=== PATIENT | male | born 1975 | race Caucasian/White ===

== ENCOUNTER → 2019-03-30 14:44 | Outpatient (BNVA) | payer MEDICAID, SELFPAY | PROVIDERS: Family Provider Nurse Practitioner; PCP Nurse Practitioner; Visit Provider Nurse Practitioner | DX: E03.8 Other specified hypothyroidism (principal); R79.89 Other specified abnormal findings of blood chemistry; E55.9 Vitamin D deficiency, unspecified; K12.2 Cellulitis and abscess of mouth; F98.8 Other specified behavioral and emotional disorders with onset usually occurring in childhood and adolescence; M79.7 Fibromyalgia | CPT/HCPCS: 80053; 84403; 84443 ==

== ENCOUNTER → 2019-04-01 14:08 | Outpatient (BNVA) | payer MEDICAID, SELFPAY | PROVIDERS: Family Provider Nurse Practitioner; PCP Nurse Practitioner; Visit Provider Urology | DX: R79.89 Other specified abnormal findings of blood chemistry (principal) | CPT/HCPCS: 81001 ==

== ENCOUNTER → 2019-06-22 09:53 | Outpatient (BNVA) | payer MEDICAID, SELFPAY | PROVIDERS: Family Provider Nurse Practitioner; PCP Nurse Practitioner; Visit Provider Urology | DX: R79.89 Other specified abnormal findings of blood chemistry (principal); E03.8 Other specified hypothyroidism; Z11.59 Encounter for screening for other viral diseases; R74.8 Abnormal levels of other serum enzymes | CPT/HCPCS: 84403; 84443; 86705; 86706; 86709; 86803; 87340 ==

== ENCOUNTER → 2019-10-15 14:00 | Outpatient (BNVA) | payer MEDICAID, SELFPAY | PROVIDERS: Family Provider Nurse Practitioner; PCP Nurse Practitioner; Visit Provider Nurse Practitioner | DX: E03.8 Other specified hypothyroidism (principal); E55.9 Vitamin D deficiency, unspecified; R74.8 Abnormal levels of other serum enzymes; K57.30 Diverticulosis of large intestine without perforation or abscess without bleeding | CPT/HCPCS: 80053; 82306; 84439; 84443; 84481 ==

== ENCOUNTER 2019-10-23 09:57 | Outpatient (CLI) | payer MEDICAID, SELFPAY ==
[2019-10-23] MEDS: iohexol 300 mg/mL 50 mL Btl IV (10:16)
[2019-10-23] MEDS: iohexol 300 mg/mL 100 mL Btl IV (11:24)
--- NOTE | 2019-10-23 11:30 | CT_ITS ---
WS: [id number] CT ABDOMEN AND PELVIS WITH CONTRAST HISTORY: frequent stooling TECHNIQUE: Imaging performed of the abdomen and pelvis with IV contrast. Single phase imaging of the abdomen. Coronal and sagittal reformats are submitted. All CT scans at [facility] use at least one of these dose optimization techniques: automated exposure control; mA and/or kV adjustment per patient size (includes targeted exams where dose is matched to clinical indication); or iterativ e reconstruction. IV CONTRAST: Omnipaque 300; 95 mL IV. Oral contrast: Yes. DLP: 1089.62 mGycm COMPARISON: 01/29/2017 Lower thorax: Lung bases are clear. Heart is normal size. No hiatal hernia. Liver/biliary system: Mild hepatic steatosis. Normal size. Gallbladder: Normal. No gallstones or wall thickening. No pericholecystic fluid. Pancreas: Normal. Spleen: Normal. Adrenal glands: Normal. Right kidney: Normal. Left kidney: Normal. Aorta: Minimal atherosclerosis. Lymphadenopathy: None. Free fluid: None. GI tract: The appendix is not definitely identified. No obstruction or mucosal thickening. No strictu res are identified. No pericolonic inflammation. Abdominal wall: Small fat-containing umbilical hernia. Pelvis: Urinary bladder is normally distended. No adenopathy or free fluid. Bilateral inguinal canals are patent containing fat. Bones: Unremarkable. CT/CT abdomen pelvis w con* [id number] IMPRESSION: 1. No acute abdominal or pelvic abnormalities. 2. Mild hepatic steatosis. 3. Appendix is not identified. No GI tract abnormality.
== END 2019-10-23 09:58 | disposition home or self-care (01) ==
LOC: RADWPI 10:00
PROVIDERS: Family Provider Nurse Practitioner; PCP Nurse Practitioner; Visit Provider Nurse Practitioner
DX: R19.4 Change in bowel habit (principal); K76.0 Fatty (change of) liver, not elsewhere classified
CPT/HCPCS: 74177; Q9967

== ENCOUNTER → 2020-01-13 15:17 | Outpatient (BNVA) | payer MEDICAID, SELFPAY | PROVIDERS: Family Provider Nurse Practitioner; PCP Nurse Practitioner; Visit Provider Urology | DX: R79.89 Other specified abnormal findings of blood chemistry (principal); N52.9 Male erectile dysfunction, unspecified | CPT/HCPCS: 81003; 84403 ==

== ENCOUNTER 2020-04-20 10:51 | Emergency (ER) | payer BC, MEDICAID, SELFPAY ==
[2020-04-20 10:52] VITALS: BP 112/94; PULSE 98; RESP 18; O2SAT 96; BMI 36.5
[2020-04-20 11:05] VITALS: BP 112/94; PULSE 96; RESP 17; O2SAT 96
--- NOTE | 2020-04-20 11:36 | CT_ITS ---
WS: [id number] CT LUMBAR SPINE TECHNIQUE: Noncontrast CT of the lumbar spine with coronal and sagittal reformatted images. CLINICAL INFORMATION: severe pain; cannot ambulate COMPARISON: None. DLP: 2714.[address] scans at [facility] use at least one of these dose optimization techniques: automat ed exposure control; mA and/or kV adjustment per patient size (includes targeted exams where dose is matched to clinical indication); or iterative reconstruction. FINDINGS: Normal lumbar alignment. No acute compression. No acute compression fractures. L1-L2: Central disc protrusion L1-2 with mild central canal stenosis and narrowing of the subarticula r recess. Mild facet arthropathy. Foramen are patent. L2-L3: Minimal annular bulging. Moderate facet arthropathy with ligamentum flavum hypertrophy. Imping ement left subarticular recess. Mild left foraminal narrowing. L3-L4: Minimal annular bulging. Moderate facet arthropathy. Mild left and no significant right forami nal narrowing. Spinal canal is patent. L4-L5: Shallow broad-based central disc protrusion with impingement on the traversing L5 nerve roots bilaterally. Mild central canal stenosis. Mild facet arthropathy. Foramen are patent. L5-S1: Tiny shallow central protrusion. Mild left and no significant right foraminal narrowing. Spina l canal is patent. Mild to moderate facet arthropathy. Adrenal glands are normal. A few shoddy lymph nodes in the mara hepatis. Visualized pelvic bony structures: Normal. Paravertebral soft tissues: Normal. CT/CT lumbar spine wo con* [id number] IMPRESSION: 1. Mild lumbar curve. No acute compression. No visualized fractures. 2. Central and left pericentral disc protrusion L1-2 with mild to moderate rocky tral canal stenosis and impingement traversing L2 nerve roots bilaterally. 3. Shallow central disc protrusion L4-5 with mild central canal stenosis and i mpingement traversing L5 nerve roots bilaterally. Mild right foraminal narrowin g at this level. 4. Moderate facet arthropathy L2-3 with ligamentum flavum hypertrophy. Narrowi ng of the left subarticular recess at this level. 5. Above findings can be further evaluated MRI.
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
[2020-04-20 12:21] VITALS: BP 113/91; PULSE 76; RESP 16; O2SAT 97
[2020-04-20 13:24] VITALS: RESP 18
[2020-04-20] MEDS: morphine 4 mg/mL SDV 1 mL IM (13:24)
[2020-04-20 13:27] VITALS: BP 139/79; PULSE 93; RESP 16; O2SAT 92
[2020-04-20] MEDS: ketorolac 60 mg/2 mL INJ IM (14:08)
[2020-04-20] MEDS: orphenadrine 30 mg/mL Inj 2 mL 60 MG IM (14:08)
[2020-04-20] MEDS: dexamethasone 10 mg/mL INJ IM (14:08)
[2020-04-20 14:12] VITALS: BP 136/114; PULSE 93; RESP 15; O2SAT 91
[2020-04-20] MEDS: HYDROmorphone 1 mg/mL INJ 1 mL SUBCUT (15:11)
== END 2020-04-20 16:55 | disposition home or self-care (01) ==
PROVIDERS: Emergency Provider Physician Assistant; PCP Nurse Practitioner
DX: M51.26 Other intervertebral disc displacement, lumbar region (principal); F17.210 Nicotine dependence, cigarettes, uncomplicated
CPT/HCPCS: 72131; 99283; J1100; J1170; J1885; J2270; J2360

== ENCOUNTER → 2020-05-12 15:26 | Outpatient (BNVA) | payer BC, SELFPAY | PROVIDERS: PCP Nurse Practitioner; Visit Provider Nurse Practitioner | DX: E03.8 Other specified hypothyroidism (principal); R73.9 Hyperglycemia, unspecified; Z87.891 Personal history of nicotine dependence | CPT/HCPCS: 80053; 83036; 84439; 84443; 84481 ==

== ENCOUNTER → 2020-07-07 08:48 | Outpatient (BNVA) | payer BC, SELFPAY | PROVIDERS: PCP Nurse Practitioner; Visit Provider Nurse Practitioner | DX: E03.8 Other specified hypothyroidism (principal); Z13.6 Encounter for screening for cardiovascular disorders; M79.7 Fibromyalgia; E55.9 Vitamin D deficiency, unspecified | CPT/HCPCS: 80053; 80061; 82306; 84443; 85025 ==

== ENCOUNTER → 2020-07-19 13:05 | Outpatient (BNVA) | payer BC, SELFPAY | PROVIDERS: PCP Nurse Practitioner; Visit Provider Urology | DX: N52.9 Male erectile dysfunction, unspecified (principal); R79.89 Other specified abnormal findings of blood chemistry; F17.210 Nicotine dependence, cigarettes, uncomplicated | CPT/HCPCS: 81003; 84403 ==

== ENCOUNTER → 2020-12-20 12:00 | Outpatient (BNVA) | payer BC, SELFPAY | PROVIDERS: PCP Nurse Practitioner; Visit Provider Nurse Practitioner | DX: E03.8 Other specified hypothyroidism (principal); E55.9 Vitamin D deficiency, unspecified; M79.7 Fibromyalgia | CPT/HCPCS: 80053; 82306; 84443 ==

== ENCOUNTER → 2021-02-22 14:56 | Outpatient (BNVA) | payer BC, MEDICAID, SELFPAY | PROVIDERS: PCP Nurse Practitioner; Visit Provider Urology | DX: N52.1 Erectile dysfunction due to diseases classified elsewhere (principal); R79.89 Other specified abnormal findings of blood chemistry | CPT/HCPCS: 81003; 84403 ==

== ENCOUNTER → 2023-02-08 10:00 | Outpatient (BNVA) | payer MEDICAID, SELFPAY | PROVIDERS: PCP Family Medicine; Visit Provider Family Medicine | DX: E03.8 Other specified hypothyroidism (principal); R79.89 Other specified abnormal findings of blood chemistry; E55.9 Vitamin D deficiency, unspecified; M79.7 Fibromyalgia | CPT/HCPCS: 80053; 80061; 82306; 84403; 84443; 84550; 85025 ==

== ENCOUNTER → 2023-04-18 09:45 | Outpatient (BNVA) | payer MEDICAID, SELFPAY | PROVIDERS: PCP Family Medicine; Visit Provider Nurse Practitioner Family | DX: J02.9 Acute pharyngitis, unspecified (principal); E03.8 Other specified hypothyroidism; E55.9 Vitamin D deficiency, unspecified; E78.5 Hyperlipidemia, unspecified; R79.89 Other specified abnormal findings of blood chemistry; E79.0 Hyperuricemia without signs of inflammatory arthritis and tophaceous disease | CPT/HCPCS: 80053; 80061; 82306; 84403; 84439; 84443; 84550; 85025; 87071; 87880 ==

== ENCOUNTER 2023-04-29 23:23 | Emergency (ER) | payer MEDICAID, SELFPAY ==
[2023-04-29 23:27] VITALS: BP 108/68; PULSE 102; RESP 20; TEMP 36.9; O2SAT 95
--- NOTE | 2023-04-29 23:29 | XRR_ITS ---
PROCEDURE INFORMATION: Exam: XR Chest Exam date and time: 04/29/2023 11:41 PM Age: 48 years old Clinical indication: Other: Syncope; Chest wall pain; Patient HX: Chest pain followed by syncopal episode, ETOH TECHNIQUE: Imaging protocol: Radiologic exam of the chest. Views: 1 view. COMPARISON: CT abdomen pelvis w con* [id number] 10/23/2019 11:21 AM FINDINGS: Lungs: No consolidation. Pleural spaces: No large pleural effusion. No pneumothorax. Heart/Mediastinum: Unremarkable. No cardiomegaly. Bones/joints: No acute abnormality. XR/XR chest 1V portable [id number] IMPRESSION: No acute findings.
--- NOTE | 2023-04-29 23:29 | CTR_ITS ---
PROCEDURE INFORMATION: Exam: CT Head Without Contrast Exam date and time: 04/29/2023 11:50 PM Age: 48 years old Clinical indication: Syncope and collapse; Additional info: Syncope fall TECHNIQUE: Imaging protocol: Computed tomography of the head without contrast. Radiation optimization: All CT scans at this facility use at least one of these dose optimization techniques: automated exposure control; mA and/or kV adjustment per patient size (includes targeted exams where dose is matched to clinical indication); or iterative reconstruction. COMPARISON: CR XR cervical spine 3V* [id number] 01/29/2017 8:37 AM RADIATION DOSE METRICS: Total DLP (mGy-cm): 1145 FINDINGS: Brain: No acute intracranial hemorrhage. No territorial region of dawn-white dedifferentiation. No extra-axial collection. No mass effect or midline shift. Cerebral ventricles: No acute hydrocephalus. Paranasal sinuses: Mucosal thickening throughout the [id number]-right ethmoid, maxillary, and sphenoid sinuses. Fluid level in the left maxillary sinus. Mastoid air cells: Visualized mastoid air cells are well aerated. Orbital cavities: No acute abnormality. Bones/joints: No acute calvarial fracture. Soft tissues: No acute abnormality. CT/CT head wo con* [id number] IMPRESSION: 1. No acute intracranial hemorrhage or evidence of acute territorial infarct. 2. Findings which can be seen with acute sinusitis in the appropriate clinical context.
[2023-04-29 23:43] LABS: Basophils % 0.4 %; Eosinophils # 0.2 10^3/uL (0.0-0.8); Eosinophils % 2.9 %; Hematocrit 42.8 % (37-53); Lymphocytes % 37.9 %; Mean Corpuscular HGB Conc 32.9 g/dL (30-55); Mean Corpuscular Hemoglobin 28.4 pg (27-33); Mean Corpuscular Volume 86.1 fl (82-101); Mean Platelet Volume 9.6 fL (7.4-10.4); Monocytes # 0.5 10^3/uL (0.2-0.9); Monocytes % 5.6 %; Neutrophils # 4.22 10^3/uL (1.8-7.7); Neutrophils % 52.9 %; Nucleated Red Blood Cells % 0 %; Platelet Count 323 10^3/cmm (157-399); Red Blood Count 4.97 10^6/uL (3.85-5.65); Red Cell Distribution Width 13.2 % (12.1-15.1); White Blood Count 7.97 10^3/uL (3.29-11.43)
[2023-04-29 23:57] LABS: INR 1.03 (0.8-1.2)
[2023-04-29 23:59] LABS: D Dimer <= 0.27 ug/mLFEU (0-0.59)
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
[2023-04-30 00:02] LABS: Add Urine Microscopic? NO; Charge for UA Resulting for Rev
[2023-04-30 00:06] LABS: Bilirubin Urine Neg (Negative); Blood Urine Neg (Negative); Glucose Urine UA Norm (Normal); Ketones Urine Negative (Negative); Leukocyte Esterase Urine Negative (Negative); Nitrate Urine Negative (Negative); Protein Urine Neg (Negative); Urine Appearance Clear (CLEAR); Urine Color Light yellow (Yellow); Urobilinogen Urine Norm (Negative); pH Urine 6 (5-7)
[2023-04-30 00:06] LABS: Troponin(5th) Baseline 9 ng/L (0-15)
[2023-04-30 00:12] LABS: Amphetamines Screen Urine Negative (Negative); Barbiturates Screen Urine Negative (Negative); Benzodiazepines Screen Urine Negative (Negative); Cocaine Screen Urine Negative (Negative); Opiate Screen Urine Negative (Negative); PCP Screen Urine Negative (Negative); THC Screen Urine Negative (Negative)
[2023-04-30 00:15] VITALS: BP 108/68; RESP 18
[2023-04-30 00:24] LABS: Alanine Aminotransferase 15 U/L (0-41); Albumin Level 3.4 g/dL (3.5-5.2); Alcohol Level 179 mg/dL (0-10); Alkaline Phosphatase 78 U/L (40-130); Anion Gap 18.5 (5-19); Aspartate Amino Transferase 14 U/L (0-40); Blood Urea Nitrogen 6 mg/dL (6-20); Calcium 8.2 mg/dL (8.5-10.5); Carbon Dioxide 21 mmol/L (22-29); Chloride 105 mmol/L (98-107); Globulin 2.9 g/dL (1.3-4.6); Glucose 86 mg/dL (65-115); Osmolality Calculated 289 mOsm/kg (285-295); Potassium 3.5 mmol/L (3.5-5.1); Sodium 141 mmol/L (136-145); Thyroid Stimulating Hormone 0.01 uIU/mL (0.27-4.20); Total Bilirubin 0.2 mg/dL (0.15-1.2); Total Protein 6.3 g/dL (6.6-8.7)
--- NOTE | 2023-04-30 01:29 | ECG_ITS ---
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 Measurements Intervals Globe Rate: 96 P: 62 WV: 158 QRS: 63 QRSD: 88 T: 64 QT: 338 QTc: 428 Interpretive Statements SINUS RHYTHM POSSIBLE LEFT ATRIAL ENLARGEMENT [-0.1mV P-WAVE IN V1/V2] No previous ECG available for comparison Electronically Signed On 04-30-2023 18:32:29 ORGAN GRINDER by Amelie Stallings M.D. [email or web address]
[2023-04-30 01:36] VITALS: BP 167/68; PULSE 97; RESP 18; O2SAT 98
[2023-04-30 01:52] LABS: Troponin 5 2HR 8.12 ng/L (0-15)
[2023-04-30 02:01] LABS: Troponin 5 2HR Delta -0.88 ABS# (0-10)
[2023-04-30 02:08] VITALS: BP 114/76; PULSE 89; RESP 16; O2SAT 97
== END 2023-04-30 02:13 | disposition home or self-care (01) ==
PROVIDERS: Emergency Provider Emergency Medicine; PCP Family Medicine
DX: R07.89 Other chest pain (principal); R55 Syncope and collapse; F10.920 Alcohol use, unspecified with intoxication, uncomplicated; Y90.6 Blood alcohol level of 120-199 mg/100 ml
CPT/HCPCS: 36415; 70450; 71045; 80053; 80306; 80307; 81003; 84443; 84484; 85025; 85378; 85610; 93005; 99285